=== PATIENT | female | born 1995 | race African-American/Black ===

== ENCOUNTER 2019-12-17 16:01 | Emergency (ER) | payer MEDICAID, OTHER ==
[~2019-12-17] VITALS: Ht 172.7 cm; Wt 76.4 kg
[~2019-12-17 16:01] MED LIST: PROZ10 PO
[2019-12-17] MEDS: ACETAMINOPHEN 500 MG TABLET PO ONE (16:54)
[2019-12-17 19:03] VITALS: BP 124/71
== END 2019-12-17 19:38 | disposition home or self-care (01) ==
LOC: EMS 16:07
DX: S50.02XA Contusion of left elbow, initial encounter (principal); M54.2 Cervicalgia; R51.9 Headache, unspecified; Z88.0 Allergy status to penicillin; V43.52XA Car driver injured in collision with other type car in traffic accident, initial encounter; Y93.89 Activity, other specified; Y92.488 Other paved roadways as the place of occurrence of the external cause; Y99.8 Other external cause status
CPT/HCPCS: 70450; 72125